=== PATIENT | male | born 1945 | race Caucasian/White ===

== ENCOUNTER 2023-10-28 07:15 | Day surgery (SDC) | payer MEDICARE, OTHER ==
[~2023-10-28 07:15] MED LIST: HYDROmorphone 0.5 MG/0.5 ML Syringe IVPUSH PRN; Lactated Ringers 1,000 ML IV SCH; Morphine 8 MG, EPINEPHrine 0.3 MG, Cefuroxime 750 MG, Ketorolac 30 MG, Sodium Chloride ... PRN; Ondansetron 4 MG/2 ML SDV IVPUSH PRN; Sodium Chloride 0.9% 10 ML Syringe FLUSH PRN; Sodium Chloride 0.9% 10 ML Syringe FLUSH SCH; fentaNYL 100 MCG/2 ML SDV IVPUSH PRN
[2023-10-28] MEDS ORDERED: ceFAZolin 2 GM Vial ONE (07:55)
[2023-10-28] MEDS ORDERED: Lidocaine 2% 5 ML SDV ONE (07:55)
[2023-10-28] MEDS ORDERED: fentaNYL 100 MCG/2 ML SDV ONE (07:55)
[2023-10-28] MEDS ORDERED: Propofol 200 MG/20 ML SDV ONE ×2 (07:55→10:58)
[2023-10-28] MEDS ORDERED: Vancomycin 1 GM SDV ONE ×2 (09:26→09:34)
[2023-10-28] MEDS ORDERED: Tranexamic Acid 1,000 MG/10 ML Vial ONE (09:26)
[2023-10-28] MEDS ORDERED: Lactated Ringers 1,000 ML IV ONE (10:00)
[2023-10-28] MEDS ORDERED: ePHEDrine 50 MG/ML SDV ONE (11:04)
[2023-10-28] MEDS ORDERED: Ropivacaine 0.5% 5 MG/ML 30 ML SDV ONE (11:43)
[2023-10-28] MEDS ORDERED: Cyclobenzaprine 10 MG Tab PO PRN (12:40)
[2023-10-28] MEDS: oxyCODONE 5 MG Tab PO PRN ×2 (14:06→15:00)
== END 2023-10-28 15:50 | disposition home or self-care (01) ==
LOC: JD.SDS 07:15
PROVIDERS: ATTEND Orthopaedic Surgery
DX: M17.11 Unilateral primary osteoarthritis, right knee (principal); K21.9 Gastro-esophageal reflux disease without esophagitis; F32.A Depression, unspecified; E78.5 Hyperlipidemia, unspecified; G47.33 Obstructive sleep apnea (adult) (pediatric); I44.2 Atrioventricular block, complete; Z95.0 Presence of cardiac pacemaker; Z79.899 Other long term (current) drug therapy; Z88.5 Allergy status to narcotic agent; Z88.8 Allergy status to other drugs, medicaments and biological substances
CPT/HCPCS: 0055T; 27447; 64447; 73560; 97110; 97116; 97161; A9270; C1713; C1776; J0171; J0690; J0697; J1885; J2270; J2704; J2795; J3010; J3370; J7030; J7120; 01402; 99100; J3490